=== PATIENT | female | born 1990 | race African-American/Black ===

== ENCOUNTER 2019-06-01 11:13 | Emergency (ER) | payer MEDICAID ==
[~2019-06-01] VITALS: Ht 165.1 cm; Wt 74.4 kg
[2019-06-01 11:20] VITALS: BP 118/87
--- NOTE | 2019-06-01 12:30 | NUR ---
Patient discharged to home in stable condition. Written and verbal after care instructions given. Patient verbalizes understanding of instruction.
== END 2019-06-01 12:30 | disposition home or self-care (01) ==
LOC: ER 11:13
DX: L03.319 Cellulitis of trunk, unspecified (principal); L73.2 Hidradenitis suppurativa; J45.909 Unspecified asthma, uncomplicated

== ENCOUNTER 2022-02-18 21:22 | Emergency (ER) | payer MEDICAID, OTHER ==
[~2022-02-18] VITALS: Ht 167.6 cm; Wt 81.6 kg
[2022-02-18] MEDS ORDERED: ONDA4TAB11 PO (22:12)
[2022-02-18] MEDS ORDERED: LOPE2CAP PO (22:12)
[2022-02-18] MEDS ORDERED: DICY20TA11 PO (22:12)
[2022-02-18] MEDS ORDERED: IV NS 0.9% 1,000 ML IV ONE (22:30)
[2022-02-18] MEDS ORDERED: ONDANSETRON HCL/PF 4 MG/2 ML VIAL ONE (22:30)
[2022-02-18] MEDS ORDERED: ONDANSETRON HCL/PF 4 MG/2 ML VIAL IV ONE (22:30)
--- NOTE | 2022-02-18 22:33 | NUR ---
BIBS FOR C/O N/V/D FOR THE PAST FEW DAYS WELL DIFFUSED "CRAMPING" ABD PAIN. NO REPORTED FEVERS. PT AWAKE AND ALERT X4 BREATHING UNLABORED. ALL V/S WNL.
--- NOTE | 2022-02-18 22:39 | NUR ---
20G IV RIGHT AC STARTED. BLOOD DRAWN AND SENT TO LAB
[2022-02-18 22:55] LABS: BASOPHILS % (AUTO) 0.5 % (0.0-2.0); EOSINOPHILS % (AUTO) 2.5 % (0.0-6.0); HEMATOCRIT 45 % (33-45); HEMOGLOBIN 15.3 g/dL (11.5-14.8); LYMPHOCYTES # (AUTO) 3.1 K/uL (0.8-4.8); LYMPHOCYTES % (AUTO) 38.9 % (20.0-44.0); MEAN CORPUSCULAR HGB CONC 34 g/dl (31.0-36.0); MEAN CORPUSCULAR VOLUME 91 fL (82-100); MONOCYTES # (AUTO) 0.7 K/uL (0.1-1.30); MONOCYTES % (AUTO) 8.4 % (2.0-12.0); NEUTROPHILS % (AUTO) 49.7 % (43.0-81.0); PLATELET COUNT (AUTO) 303 K/uL (150-450); RED BLOOD CELL COUNT(AUTO) 4.91 MIL/uL (4.0-5.2)
[2022-02-18 23:03] LABS: CALCIUM, SERUM 9.6 mg/dL (8.5-10.1); CREATININE 1.2 mg/dL (0.6-1.3); POTASSIUM 4.1 mmol/L (3.5-5.1)
--- NOTE | 2022-02-18 23:48 | NUR ---
Patient discharged to home in stable condition. Written and verbal after care instructions given. Patient verbalizes understanding of instruction.IV removed. Catheter intact and site benign. Pressure and 4x4 applied to site. No bleeding noted.
[2022-02-18 23:49] VITALS: BP 116/89
== END 2022-02-18 23:49 | disposition home or self-care (01) ==
LOC: ER 21:26
DX: A08.4 Viral intestinal infection, unspecified (principal); R11.2 Nausea with vomiting, unspecified; J45.909 Unspecified asthma, uncomplicated; Z79.899 Other long term (current) drug therapy
CPT/HCPCS: 99283; 96374; 96361; 85025; 80048; 36415; J2405; J7030

== ENCOUNTER 2022-07-10 14:32 | Emergency (ER) | payer OTHER ==
[~2022-07-10] VITALS: Ht 167.6 cm; Wt 80.7 kg
[~2022-07-10 14:32] MED LIST: DICY20TA11 PO; LOPE2CAP PO; ONDA4TAB11 PO
--- NOTE | 2022-07-10 15:02 | NUR ---
dr ignacio at bedside for eval.
[2022-07-10] MEDS ORDERED: ALBUTEROL FS 2.5 MG/3 ML VIAL.NEB NEB ONE (15:30)
[2022-07-10] MEDS ORDERED: predniSONE 20 MG TABLET PO ONE (15:30)
[2022-07-10] MEDS ORDERED: IPRATROPIUM NEB FS 0.5 MG/2.5 ML AMPUL.NEB NEB ONE (15:30)
[2022-07-10] MEDS ORDERED: predniSONE 20 MG TABLET ONE (15:30)
[2022-07-10] MEDS ORDERED: ALBUTEROL FS 2.5 MG/3 ML VIAL.NEB ONE (15:56)
[2022-07-10] MEDS ORDERED: IPRATROPIUM NEB FS 0.5 MG/2.5 ML AMPUL.NEB ONE (15:56)
--- NOTE | 2022-07-10 16:30 | NUR ---
pt states "feel better" NO obvious distress/no acute changes Patient discharged to home in stable condition. Written and verbal after care instructions given. Patient verbalizes understanding of instruction.
[2022-07-10] MEDS ORDERED: ALBU6.7H9 INH (16:41)
[2022-07-10] MEDS ORDERED: PRED50TA PO (16:41)
[2022-07-10 16:57] VITALS: BP 135/90
== END 2022-07-10 16:58 | disposition home or self-care (01) ==
LOC: ER 14:41
DX: J45.901 Unspecified asthma with (acute) exacerbation (principal); Z60.2 Problems related to living alone; Z79.899 Other long term (current) drug therapy
CPT/HCPCS: 99285; 94640 ×2; J7512